=== PATIENT | male | born 1955 | race Caucasian/White ===

== ENCOUNTER 2022-10-05 11:27 | Day surgery (SDC) | payer MEDICARE, OTHER ==
[~2022-10-05 11:27] MED LIST: Gabapentin 300 MG Cap PO SCH; Lactated Ringers 1,000 ML IV SCH; Sodium Chloride 0.9% 10 ML Syringe FLUSH PRN; Sodium Chloride 0.9% 10 ML Syringe FLUSH SCH; Succinylcholine 200 MG/10 ML MDV ONE
[2022-10-05] MEDS ORDERED: Acetaminophen 325 MG Tab PO SCH (11:30)
[2022-10-05] MEDS ORDERED: VANCOmycin 2 GM/400 ML 2 GM in Premix Bag 1 BAG IV SCH (11:30)
[2022-10-05] MEDS ORDERED: Propofol 200 MG/20 ML SDV ONE (12:11)
[2022-10-05] MEDS ORDERED: Rocuronium 50 MG/5 ML Vial ONE (12:12)
[2022-10-05] MEDS ORDERED: Ondansetron 4 MG/2 ML SDV ONE (12:12)
[2022-10-05] MEDS ORDERED: Lidocaine 1% 6 ML ONE (12:12)
[2022-10-05] MEDS ORDERED: fentaNYL 250 MCG/5 ML SDV ONE (12:13)
[2022-10-05] MEDS ORDERED: Bupivacaine 0.5%/EPINEPHrine 1:200,000 50 ML MDV ONE (12:20)
[2022-10-05] MEDS ORDERED: Lidocaine 1% 30 ML SDV ONE (12:21)
[2022-10-05] MEDS ORDERED: EPINEPHrine 1 MG/ML SDV ONE (12:35)
[2022-10-05] MEDS ORDERED: HYDROmorphone 0.5 MG/0.5 ML Syringe IVPUSH PRN ×2 (12:53→15:14)
[2022-10-05] MEDS ORDERED: Ondansetron 4 MG/2 ML SDV IVPUSH PRN ×2 (12:53→15:14)
[2022-10-05] MEDS ORDERED: fentaNYL 100 MCG/2 ML SDV IVPUSH PRN ×2 (12:53→15:14)
[2022-10-05] MEDS ORDERED: ePHEDrine 50 MG/ML SDV ONE (13:25)
[2022-10-05] MEDS ORDERED: Acetaminophen/oxyCODONE 325-5 MG Tab PO PRN (16:28)
[2022-10-05] MEDS ORDERED: Ketorolac 15 MG/ML SDV IVPUSH ONE (16:49)
== END 2022-10-05 17:27 | disposition home or self-care (01) ==
LOC: JD.SDS 11:27
PROVIDERS: ATTEND Surgery
DX: K40.20 Bilateral inguinal hernia, without obstruction or gangrene, not specified as recurrent (principal); D72.829 Elevated white blood cell count, unspecified; I25.10 Atherosclerotic heart disease of native coronary artery without angina pectoris; N28.9 Disorder of kidney and ureter, unspecified; E78.00 Pure hypercholesterolemia, unspecified; Z98.890 Other specified postprocedural states; Z79.899 Other long term (current) drug therapy; Z79.82 Long term (current) use of aspirin
CPT/HCPCS: 49650; A9270; J0330; J1885; J2405; J2704; J3010; J3370; J3490; J7120; C1727; C1781; J0171